=== PATIENT | female | born 1975 | race Hispanic/Latino ===

== ENCOUNTER 2016-10-05 09:07 | Emergency (ER) | payer OTHER ==
--- NOTE | 2016-10-05 09:27 | ED GI/GU/ABDOMINAL COMPLAINT ---
History of Present Illness General Chief Complaint: Abdominal Pain/Flank Pain Stated Complaint: ABD,VOMITING Source: patient Exam Limitations: no limitations Vital Signs & Intake/Output Vital Signs & Intake/Output Vital Signs Date Time Temp Pulse Resp B/P B/P Pulse O2 O2 Flow FiO2 Mean Ox Delivery Rate 10/05 1352 96.7 51 18 131/58 97 Room Air 10/05 0912 97.4 77 20 152/91 98 Room Air Allergies Coded Allergies: latex (Mild, HIVES 10/05/16) Reconcile Medications Cholecalciferol (Vitamin D3) (Vitamin D3) 400 UNIT TABLET 1 TAB PO DAILY VITAMIN (Reported) Ferrous Fumarate (Ferrocite) 324 MG (106 MG IRON) TABLET 1 TAB PO DAILY A ( Reported) Hydrocodone/Acetaminophen (Hepzibah 5-325 Tablet) 5 MG-325 MG TABLET 1 TAB PO BIDP PRN PAIN Ondansetron (Zofran Odt) 4 MG TAB.RAPDIS 1 TAB SL TID PRN NAUSEA Tamsulosin HCl (Flomax) 0.4 MG CAP.ER.24H 1 CAP PO DAILY PRN KIDNEY STONE Triage Note: PT BIBA FROM HOME FOR SUDDEN ONSET OF LOWER QUADRANT ABDOMINAL PAIN THAT STARTED THIS AM. PT ALSO C/O OF NAUSEA Triage Nurses Notes Reviewed? yes ? N Is pt currently ? No Onset: Abrupt Duration: hour(s): (3) Timing: no prior history Quality/Severity: sharpness, severe Severity Numbers: 10 Location: right lower quadrant Radiation: no radiation Activities at Onset: none Prior Abdominal Problems: none No Modifying Factors: none Modifying Factors: Worsens With: palpation. HPI: Patient is a 41-year-old female presenting to the emergency department with chief complaint of right lower quadrant abdominal pain that started suddenly this morning after she woke up. Pain is sharp and stabbing. Currently 10 of 10. Denies taking anything for pain. She has associated nausea and vomiting. Denies diarrhea. Denies any urinary frequency urgency or dysuria. No hematuria. No history of similar symptoms. History of in the past, still has her appendix. Denies any fevers or chills. No sick contacts or recent travel. Denies recent antibiotic use. Nothing seems to make the pain better or worse. (JANINE LORD,KAREN) Past History Travel History Traveled to [place] past 21 day No Medical History Any Pertinent Medical History? see below for history Blood Disorders: anemia Surgical History Surgical History: non-contributory Psychosocial History Tobacco Use: Never used Family History Hx Contributory? No (KAREN LILLY) Review of Systems Review of Systems Constitutional: Reports: no symptoms. Comments Review of systems: See HPI, All other systems negative. Constitutional, no chills fever or weight loss HEENT: No visual changes no sore throat no congestion Cardiovascular: No chest pain ,palpitation Skin, no jaundice no rashes Respiratory: No dyspnea cough sputum or hemoptysis GI: NO DIARRHEA : No dysuria No hematuria Muscle skeletal: no back pain, no neck pain, Neurologic: No numbness no confusion NO LUCIO Psych: No stress anxiety Immunology: No splenectomy or history of AIDS (KAREN LILLY) Physical Exam Physical Exam General Appearance: well developed/nourished, alert, awake, anxious, moderate distress Gastrointestinal: normal bowel sounds, soft, guarding, tenderness Comments: Well-developed well-nourished person in MODERATE DISTRESS HEENT: Pupils equally round and reactive to light and accommodation. Nose is atraumatic. Neck: Normal inspection Back: Nontender, no CVA tenderness Cardiovascular: Regular rate and rhythms no murmurs rubs or gallops, normal JVP Respiratory: Chest nontender. No respiratory distress.breath sounds clear to auscultation bilaterally Abdomen: Soft, tender to palpation in the right lower quadrant, tender to palpation over McBurney's point, mild guarding, no rebound tenderness, nondistended, no appreciable organomegaly. Normal bowel sounds. No ascites Extremity: No edema Neuro: Alert oriented x3 Skin: No appreciable rash on exposed skin, skin is warm and dry. Psych: Mood and affect is normal, memory and judgment is normal. Core Measures ACS in differential dx? No Severe Sepsis Present: No Septic Shock Present: No (KAREN LILLY) Progress Differential Diagnosis: appendicitis, biliary colic, gastritis, ischemic bowel, kidney stone, ovarian cyst, ovarian torsion, pancreatitis, UTI/pyelo Plan of Care: Orders Procedure Date/time Status Add-on Test (ER Only) 10/05 1005 Active HUMAN BETA HCG SCREEN 10/05 1000 Complete LACTIC ACID 10/05 0952 Complete URINALYSIS 10/05 0946 Complete C-REACTIVE PROTEIN 10/05 0946 Complete COMPREHENSIVE METABOLIC PANEL 05/06 0946 Complete CBC WITHOUT DIFFERENTIAL 10/05 945 Complete Laboratory Tests 10/05/16 1252: Lactic Acid Cancelled 10/05/16 1100: Urinalysis LIGHT H, Urine Color PINK H, Urine Clarity HAZY H, Urine pH 6.0, Ur Specific [place] 1.025, Urine Protein TRACE H, Urine Ketones NEG, Urine Nitrite NEG, Urine Bilirubin NEG, Urine Urobilinogen 0.2, Ur Leukocyte Esterase NEG, Ur Microscopic SEDIMENT EXAMINED, Urine RBC >75 H, Urine WBC RARE, Ur Epithelial Cells MANY H, Urine Bacteria RARE H, Urine Mucus FEW, Urine Hemoglobin LARGE H, Urine Glucose NEG 10/05/16 1000: Lactic Acid 2.0 10/05/16 1000: Anion Gap 16, Estimated GFR > 60, BUN/Creatinine Ratio 17.5, Glucose 117 H, Calcium 8.9, Total Bilirubin 0.4, AST 18, ALT 29, Alkaline Phosphatase 75, C- Reactive Prot, Quant < 0.5, Total Protein 7.5, Albumin 4.5, Globulin 3.0, Albumin/Globulin Ratio 1.5, Total Beta HCG NEGATIVE, CBC w Diff NO MAN DIFF REQ, RBC 4.41, MCV 88.9, MCH 29.3, RDW 14.9 H, MPV 7.3 L, Gran % 83.5 H, Lymphocytes % 12.5 L, Monocytes % 3.4, Eosinophils % 0.3, Basophils % 0.3, Absolute Granulocytes 8.4 H, Absolute Lymphocytes 1.3, Absolute Monocytes 0.3, Absolute Eosinophils 0, Absolute Basophils 0, PUBS MCHC 33.0 Diagnostic Imaging: Viewed by Me: CT Scan. Discussed w/RAD: CT Scan. Radiology Impression: PATIENT: RUDDY EASON PRESENT AGE: 41 PATIENT ACCOUNT NO: [id number] : 75 LOCATION: [facility] ORDERING PHYSICIAN: KAREN LORD SERVICE DATE: 10/05/16 EXAM TYPE: CAT - CT ABD & PELVIS W IV CONTRAST EXAMINATION: CT ABDOMEN AND PELVIS WITH CONTRAST CLINICAL INFORMATION: Right lower quadrant pain. Evaluate for appendicitis. COMPARISON: None. TECHNIQUE: Multidetector CT volumetric acquisition of the abdomen and pelvis was performed after the administration of 95 mL of intravenous Optiray 320. The data set was reformatted in the sagittal and coronal planes and reviewed on an independent workstation. DLP: 363.16 mGy-cm. FINDINGS: LOWER CHEST: Linear platelike atelectasis seen in the right middle lobe and dependent atelectasis in both lower lobes. LIVER, GALLBLADDER, BILIARY TREE: Liver demonstrates an enlarged right lobe of the liver, consistent with a Husam's lobe variant. Normal attenuation. No focal cystic or solid mass or intra-or extrahepatic ductal dilatation. Hepatic and portal veins patent. Gallbladder well distended and within normal limits. PANCREAS: Normal. No ductal dilatation, mass, or surrounding stranding. SPLEEN: Normal size and appearance. Splenic vein patent. ADRENAL GLANDS: Adrenal glands normal. KIDNEYS, URETERS AND BLADDER: There is mild right-sided hydroureteronephrosis with a dilated ureter seen extending down to the ureterovesical junction, where a 0.4 cm diameter obstructing calcification is seen with mean attenuation values of 236 Hounsfield units, consistent with a uric acid stone. There is associated mild right perinephric and periureteric edema seen in the retroperitoneum, extending from the kidney down to the upper pelvis. Asymmetrically delayed right nephrogram is seen compared to the left side. The left kidney and ureter are unremarkable. Bladder is well distended and no additional bladder calculi are noted. PELVIC ORGANS: Uterus anteverted and slightly retroflexed and mildly enlarged, measuring 12.8 x 6.4 x 6.9 cm. The uterine myometrium shows heterogeneous low attenuation around the endometrial cavity, raising the suspicion of adenomyosis. Ovaries bilaterally are unremarkable. Small amount of free fluid seen in the cul -de-sac. GASTROINTESTINAL TRACT: Normal. Small and large bowel loops decompressed. Appendix in right lower quadrant only partially visualized, but visualized portions are unremarkable. LYMPHOVASCULAR STRUCTURES: Abdominal aorta normal in caliber. No periaortic collections. No abdominal or pelvic adenopathy. BONES: Minimal vertebral spondylosis at the thoracolumbar junction. Moderate facet arthropathy in the mid and lower lumbar spine. IMPRESSION: 1. Distal right ureteral obstruction due to a 0.4 cm uric acid stone at the right ureterovesical junction, leading to mild right-sided hydroureteronephrosis, mild perinephric and periureteric stranding and edema, and slight delay in right renal function compared to the left side. 2. Appendix partially visualized and unremarkable to the extent seen. 3. Uterus mildly enlarged with heterogeneous attenuation centrally, raising the suspicion of adenomyosis. Recommend further correlation in the nonemergent setting with transvaginal pelvic ultrasound. Initial ED EKG: none Comments: Patient feeling much improved after IV fluids, Zofran and Toradol and morphine. Spoke with , covering urology. Patient will be discharged home on Flomax and pain medication. She'll follow up with urology next week. Patient nontoxic. Patient has a ride home. (JANINE LORD,KAREN) Departure Departure Time of Disposition: 1331 Disposition: HOME OR SELF CARE Condition: Stable Clinical Impression Primary Impression: Ureterolithiasis Referrals: FRANK CHRISTIAN MD PATIENT HAS NO PRIMARY CARE DR (PCP/Family) Additional Instructions: Follow-up with urology call to make an appointment. Increase fluids. Take Hepzibah as prescribed for severe pain. For mild to moderate pain take ibuprofen. Take Zofran as prescribed for any nausea. Take Flomax to help pass the stone. Use strainer when urinating to catch the stone. PATIENT: RUDDY EASON PRESENT AGE: 41 PATIENT ACCOUNT NO: [id number] : 75 LOCATION: [facility] ORDERING PHYSICIAN: KAREN LORD SERVICE DATE: 10/05/16 EXAM TYPE: CAT - CT ABD & PELVIS W IV CONTRAST EXAMINATION: CT ABDOMEN AND PELVIS WITH CONTRAST CLINICAL INFORMATION: Right lower quadrant pain. Evaluate for appendicitis. COMPARISON: None. TECHNIQUE: Multidetector CT volumetric acquisition of the abdomen and pelvis was performed after the administration of 95 mL of intravenous Optiray 320. The data set was reformatted in the sagittal and coronal planes and reviewed on an independent workstation. DLP: 363.16 mGy-cm. FINDINGS: LOWER CHEST: Linear platelike atelectasis seen in the right middle lobe and dependent atelectasis in both lower lobes. LIVER, GALLBLADDER, BILIARY TREE: Liver demonstrates an enlarged right lobe of the liver, consistent with a Husam's lobe variant. Normal attenuation. No focal cystic or solid mass or intra-or extrahepatic ductal dilatation. Hepatic and portal veins patent. Gallbladder well distended and within normal limits. PANCREAS: Normal. No ductal dilatation, mass, or surrounding stranding. SPLEEN: Normal size and appearance. Splenic vein patent. ADRENAL GLANDS: Adrenal glands normal. KIDNEYS, URETERS AND BLADDER: There is mild right-sided hydroureteronephrosis with a dilated ureter seen extending down to the ureterovesical junction, where a 0.4 cm diameter obstructing calcification is seen with mean attenuation values of 236 Hounsfield units, consistent with a uric acid stone. There is associated mild right perinephric and periureteric edema seen in the retroperitoneum, extending from the kidney down to the upper pelvis. Asymmetrically delayed right nephrogram is seen compared to the left side. The left kidney and ureter are unremarkable. Bladder is well distended and no additional bladder calculi are noted. PELVIC ORGANS: Uterus anteverted and slightly retroflexed and mildly enlarged, measuring 12.8 x 6.4 x 6.9 cm. The uterine myometrium shows heterogeneous low attenuation around the endometrial cavity, raising the suspicion of adenomyosis. Ovaries bilaterally are unremarkable. Small amount of free fluid seen in the cul-de-sac. GASTROINTESTINAL TRACT: Normal. Small and large bowel loops decompressed. Appendix in right lower quadrant only partially visualized, but visualized portions are unremarkable. LYMPHOVASCULAR STRUCTURES: Abdominal aorta normal in caliber. No periaortic collections. No abdominal or pelvic adenopathy. BONES: Minimal vertebral spondylosis at the thoracolumbar junction. Moderate facet arthropathy in the mid and lower lumbar spine. IMPRESSION: 1. Distal right ureteral obstruction due to a 0.4 cm uric acid stone at the right ureterovesical junction, leading to mild right-sided hydroureteronephrosis, mild perinephric and periureteric stranding and edema, and slight delay in right renal function compared to the left side. 2. Appendix partially visualized and unremarkable to the extent seen. 3. Uterus mildly enlarged with heterogeneous attenuation centrally, raising the suspicion of adenomyosis. Recommend further correlation in the nonemergent setting with transvaginal pelvic ultrasound. DICTATED BY: KRISS BRUNER MD DATE/TIME DICTATED:10/05/161245 CUT OFF MAN:WARREN DATE/TIME TRANSCRIBED:10/05/161245 CONFIDENTIAL, DO NOT COPY WITHOUT APPROPRIATE AUTHORIZATION. <Electronically signed in Other Vendor System> SIGNED BY: KRISS BRUNER MD [id number] Departure Forms: Customer Survey General Discharge Information Prescriptions: Current Visit Scripts Ondansetron (Zofran Odt) 1 TAB SL TID PRN NAUSEA #10 TAB Hydrocodone/Acetaminophen (Hepzibah 5-325 Tablet) 1 TAB PO BIDP PRN PAIN #10 TAB Tamsulosin HCl (Flomax) 1 CAP PO DAILY PRN KIDNEY STONE #15 CAP (KAREN LILLY) PA/CERTIFIED WELDER Co-Sign Statement Statement: ED Attending supervision documentation- I saw and evaluated the patient. I have also reviewed all the pertinent lab results and diagnostic results. I agree with the findings and the plan of care as documented in the PA's/CERTIFIED WELDER's documentation. x I have reviewed the ED Record and agree with the PA's/CERTIFIED WELDER's documentation. [] Additions or exceptions (if any) to the PAs/CERTIFIED WELDER's note and plan are summarized below: [] (LOLA MAYFIELD,INGE)
[2016-10-05] MEDS ORDERED: FERROCITE324 M1 PO (10:15)
[2016-10-05] MEDS ORDERED: VITAMIN D3400 UNI1 PO (10:16)
[2016-10-05 11:00] LABS: ABSOLUTE BASOPHIL COUNT 0 /CUMM (0.0-0.2); ABSOLUTE EOSINOPHIL COUNT 0 /CUMM (0.0-0.7); ABSOLUTE GRANULOCYTE CT 8.4 /CUMM (1.4-6.5); ABSOLUTE LYMPH COUNT 1.3 /CUMM (1.2-3.4); ABSOLUTE MONOCYTE COUNT 0.3 /CUMM (0.10-0.60); BASOPHIL % 0.3 % (0.0-2.0); EOSINOPHIL % 0.3 % (0-5); GRANULOCYTE % 83.5 % (42.2-75.2); HEMATOCRIT 39.2 % (37-47); MEAN CORPUSCULAR HGB 29.3 PG (27.0-31.0); MEAN CORPUSCULAR VOLUME 88.9 FL (81.0-99.0); MEAN PLATELET VOLUME 7.3 FL (7.4-10.4); PLATELET COUNT 246 /CUMM (130-400); RBC DISTRIBUTION WIDTH 14.9 % (11.5-14.5); RED BLOOD CELL CT 4.41 /CUMM (4.20-5.40); WHITE BLOOD CELL COUNT 10.1 /CUMM (4.8-10.8)
--- NOTE | 2016-10-05 13:06 | CT SCAN REPORT ---
EXAMINATION: CT ABDOMEN AND PELVIS WITH CONTRAST CLINICAL INFORMATION: Right lower quadrant pain. Evaluate for appendicitis. COMPARISON: None. TECHNIQUE: Multidetector CT volumetric acquisition of the abdomen and pelvis was performed after the administration of 95 mL of intravenous Optiray 320. The data set was reformatted in the sagittal and coronal planes and reviewed on an independent workstation. DLP: 363.16 mGy-cm. FINDINGS: LOWER CHEST: Linear platelike atelectasis seen in the right middle lobe and dependent atelectasis in both lower lobes. LIVER, GALLBLADDER, BILIARY TREE: Liver demonstrates an enlarged right lobe of the liver, consistent with a Husam's lobe variant. Normal attenuation. No focal cystic or solid mass or intra-or extrahepatic ductal dilatation. Hepatic and portal veins patent. Gallbladder well distended and within normal limits. PANCREAS: Normal. No ductal dilatation, mass, or surrounding stranding. SPLEEN: Normal size and appearance. Splenic vein patent. ADRENAL GLANDS: Adrenal glands normal. KIDNEYS, URETERS AND BLADDER: There is mild right-sided hydroureteronephrosis with a dilated ureter seen extending down to the ureterovesical junction, where a 0.4 cm diameter obstructing calcification is seen with mean attenuation values of 236 Hounsfield units, consistent with a uric acid stone. There is associated mild right perinephric and periureteric edema seen in the retroperitoneum, extending from the kidney down to the upper pelvis. Asymmetrically delayed right nephrogram is seen compared to the left side. The left kidney and ureter are unremarkable. Bladder is well distended and no additional bladder calculi are noted. PELVIC ORGANS: Uterus anteverted and slightly retroflexed and mildly enlarged, measuring 12.8 x 6.4 x 6.9 cm. The uterine myometrium shows heterogeneous low attenuation around the endometrial cavity, raising the suspicion of adenomyosis. Ovaries bilaterally are unremarkable. Small amount of free fluid seen in the cul-de-sac. GASTROINTESTINAL TRACT: Normal. Small and large bowel loops decompressed. Appendix in right lower quadrant only partially visualized, but visualized portions are unremarkable. LYMPHOVASCULAR STRUCTURES: Abdominal aorta normal in caliber. No periaortic collections. No abdominal or pelvic adenopathy. BONES: Minimal vertebral spondylosis at the thoracolumbar junction. Moderate facet arthropathy in the mid and lower lumbar spine. IMPRESSION: 1. Distal right ureteral obstruction due to a 0.4 cm uric acid stone at the right ureterovesical junction, leading to mild right-sided hydroureteronephrosis, mild perinephric and periureteric stranding and edema, and slight delay in right renal function compared to the left side. 2. Appendix partially visualized and unremarkable to the extent seen. 3. Uterus mildly enlarged with heterogeneous attenuation centrally, raising the suspicion of adenomyosis. Recommend further correlation in the nonemergent setting with transvaginal pelvic ultrasound.
[2016-10-05] MEDS ORDERED: NORCO 5-325 TA1 EACH PO (13:35)
[2016-10-05] MEDS ORDERED: ZOFRAN ODT4 M1 SL (13:35)
[2016-10-05] MEDS ORDERED: FLOMAX0.4 M1 PO (13:35)
[2016-10-05 13:52] VITALS: BP 131/58
== END 2016-10-05 13:52 ==
LOC: ERH 09:07
PROVIDERS: Physician Assistant
DX: N20.1 Calculus of ureter (principal)
CPT/HCPCS: 74177; 81001; 81025; 96361; 96374; 96375; 96376; J1885; J2405; J3101